=== PATIENT | female | born 1995 | race Caucasian/White ===

== ENCOUNTER 2024-02-10 08:34 | Emergency (ER) | payer SELFPAY ==
[2024-02-10] MEDS ORDERED: Ondansetron ODT 4 MG TAB ONE (08:55)
== END 2024-02-10 09:04 | disposition home or self-care (01) ==
LOC: CSHERS 08:34
DX: J06.9 Acute upper respiratory infection, unspecified (principal); B34.9 Viral infection, unspecified; R11.2 Nausea with vomiting, unspecified
CPT/HCPCS: 87428; 99284; Q0162